=== PATIENT | female | born 1970 | race Caucasian/White ===

== ENCOUNTER → 2020-12-07 | Day surgery (SDC) | payer OTHER ==
[~2020-12-07] MED LIST: AMLO-186 PO; CABO60TA PO; CLONAZEPAM1 MG PO; DULO40CA2 PO; GALC120P SQ; IV RINGERS,LACTATED 1000ML 1,000 ML IV SCH; LOSA-73 PO; METH5TAB85 PO; PROPOFOL 10 MG/ML (20ML) VIAL. IV ONE; TRAZ-123 PO
[2020-12-07 09:42] VITALS: BP 111/83
--- NOTE | 2020-12-12 11:25 | PATHOLOGY ---
[facility] Accession Number: [id number] . 01 Material submitted: . esophagus - DISTAL ESOPHAGUS BIOPSY. Modifiers: distal . 01 Clinical history: . DYSPHAGIA, ODYNOPHAGIA EGD . 02 Diagnosis: Esophagus "distal", biopsy: - Esophageal squamous mucosa with ulceration, necrosis, acute and chronic inflammation, and embedded polarizable material within ulcer bed, suggestive of pill esophagitis. - Negative for intestinal metaplasia, dysplasia, and malignancy. (MLK:cammy; 12/09/2020) QMS 12/12/2020 1023 Local . 02 Electronically signed: . Domenico Troncoso MD, Pathologist NPI- [id number] . 01 Gross description: . The specimen is received in formalin, labeled "Courtney Graham, distal esophagus biopsy". Received are two segments of pale montiel tissue measuring 0.3 cm each in maximum dimensions. The specimen is submitted entirely in cassette A1. (CAA; 12/08/2020) QAC/QAC 12/08/2020 1335 Local . 02 Pathologist provided ICD-10: K22.10, K22.8, K20.90 . 02 CPT . 137050 Specimen Comment: A courtesy copy of this report has been sent to [phone], [phone] Specimen Comment: [id number] Specimen Comment: Report sent to and Performed at: 01 [facility] [address], [place] [id number] MD Dieter Cloe MD Phone: [phone] Performed at: 02 [facility] [address] [place], [place] [id number] MD Alphonso Yang MD Phone: [phone]
== END | disposition home or self-care (01) ==
LOC: ENDOS 07:36
PROVIDERS: ATTEND Internal Medicine Gastroenterology
DX: R13.10 Dysphagia, unspecified (principal); K20.90 Esophagitis, unspecified without bleeding; K22.8 Other specified diseases of esophagus; K31.89 Other diseases of stomach and duodenum; M19.90 Unspecified osteoarthritis, unspecified site; E03.9 Hypothyroidism, unspecified; I12.9 Hypertensive chronic kidney disease with stage 1 through stage 4 chronic kidney disease, or unspecified chronic kidney disease; N18.9 Chronic kidney disease, unspecified; F32.9 Major depressive disorder, single episode, unspecified; Z90.710 Acquired absence of both cervix and uterus; Z98.890 Other specified postprocedural states; Z79.899 Other long term (current) drug therapy; Z20.822 Contact with and (suspected) exposure to COVID-19
CPT/HCPCS: 43239; 43450; 87426; 88305; J2704; 45380